=== PATIENT | male | born 1945 | race Caucasian/White ===

== ENCOUNTER → 2019-06-11 09:54 | Outpatient (CLI) | payer OTHER, SELFPAY ==
--- NOTE | ~2019-06-11 | XR_ITS ---
EXAMINATION: XR thoracic spine 3V DATE: 06/11/2019 10:32 INDICATION: Mid to lower back pain TECHNIQUE: AP, lateral and lateral swimmer's views of the thoracic spine were obtained. COMPARISON: None. FINDINGS: There are bridging osteophytes at multiple levels in the spine, consistent with diffuse idi opathic skeletal hyperostosis (DISH). There is no fracture. Bone alignment is normal. Mild loss of in tervertebral disc space height is seen in the midthoracic spine. IMPRESSION: 1. Diffuse idiopathic skeletal hyperostosis without acute findings. Reviewed, dictated and finalized at location A. [employer]
--- NOTE | ~2019-06-11 | XR_ITS ---
EXAMINATION: XR lumbar spine 2-3V DATE: 06/11/2019 10:32 INDICATION: Low back pain TECHNIQUE: Anteroposterior and lateral views of the lumbar spine, and cone-down lateral view of the l umbosacral junction were obtained. COMPARISON: None. FINDINGS: There are 2 mm of retrolisthesis of L2 on L3 and L3 on L4. The vertebral body heights are n ormal. There is severe loss of intervertebral disc space height at L2-3, moderate loss of disc space height at L5-S1, and mild loss of disc space height at L1-2 and L3-4. Small degenerative osteophytes project from the anterior endplates of multiple vertebral bodies. There is moderate lower lumbar face t osteoarthritis. Calcified atherosclerosis is noted. The bowel gas pattern is normal. Cholecystectom y clips are noted. IMPRESSION: 1. Moderate to severe lumbar spondylosis without acute findings. Reviewed, dictated and finalized at location A. [employer]
== END ==
PROVIDERS: PCP Physician Assistant; Visit Provider Physician Assistant
DX: M47.896 Other spondylosis, lumbar region (principal)
CPT/HCPCS: 72072; 72100

== ENCOUNTER 2019-08-24 10:32 | Emergency (ER) | payer OTHER, SELFPAY ==
[2019-08-24] VITALS (11 sets, daily range): BP systolic 147–183; BP diastolic 96–125; PULSE 82–108; RESP 9–20; TEMP 36.4; O2SAT 95–100
--- NOTE | ~2019-08-24 | CT_ITS ---
EXAMINATION: CT lumbar spine wo con DATE: 08/24/2019 11:22 INDICATION: Peripheral neuropathy. Urinary retention. Fall. TECHNIQUE: Computed tomography (CT) of the lumbar spine was performed without intravenous contrast. A utomated exposure control and iterative reconstruction technique were employed. The dose-length produ ct was 1391.92 mGy-cm. COMPARISON: Lumbar spine radiographs 06/11/2019, chest CT 12/31/2018 FINDINGS: There are small pleural effusions, left worse than right. There is 10 degrees dextroscolios is of lumbar spine. There are bridging endplate osteophytes from the thoracic spine to L1, consistent with diffuse idiopathic skeletal hyperostosis (DISH). There is a burst fracture of inferior endplate of T10 with 1/5 loss of height. There is a compression fracture of superior endplate of T11 with les s than 1/5 loss of height. There is 3 mm retrolisthesis of T10 on T11 with mild central canal stenosi s. There is severely decreased disc height at L2-L3 and L5-S1 and mildly decreased disc height at L3- L4. There are acute fractures of left 11th and 12th ribs. The following disc levels are specifically discussed: L1-L2: The disc is bulging. There is mild bilateral facet joint osteoarthritis. There is mild bilater al neural foraminal stenosis. There is mild central canal stenosis. L2-L3: The disc is bulging. There is severe right and moderate left facet joint osteoarthritis. There is moderate bilateral neural foraminal stenosis. There is moderate central canal stenosis. L3-L4: The disc is bulging. There is severe bilateral facet joint osteoarthritis. There is moderate r ight and mild left neural foraminal stenosis. There is mild central canal stenosis. L4-L5: The disc is bulging. There is severe bilateral facet joint osteoarthritis. There is mild bilat eral neural foraminal stenosis. There is mild central canal stenosis. L5-S1: The disc is bulging. There is severe bilateral facet joint osteoarthritis. There is moderate b ilateral neural foraminal stenosis. There is mild central canal stenosis. IMPRESSION: 1. Acute fractures of T10 and T11 vertebral bodies and left 11th and 12th ribs. 2. DISH. 3. Severe lumbar spondylosis. 4. Small pleural effusions. Reviewed, dictated and finalized at location A.
--- NOTE | ~2019-08-24 | XR_ITS ---
EXAMINATION: XR lumbar spine 2-3V DATE: 08/24/2019 11:32 INDICATION: Low back pain. Fall. TECHNIQUE: 2 views of lumbar spine were obtained. COMPARISON: Lumbar spine radiographs 06/11/2019 FINDINGS: There is 3 mm retrolisthesis of T10 on T11 and L2 on L3. There is a fracture of inferior en dplate of T10. There is a fracture of superior endplate of T11 with less than 1/5 loss of height. The re is severely decreased disc height at L2-L3 and L5-S1 and mildly decreased disc height at L3-L4. Th ere are endplate osteophytes at all levels. Surgical clips in the right upper quadrant are likely fro m cholecystectomy. IMPRESSION: 1. Fractures of the T10 and T11 vertebral bodies. 2. Severe lumbar spondylosis. Reviewed, dictated and finalized at location A.
--- NOTE | 2019-08-24 11:04 | ED.MALEGU ---
HPI - Male Genitourinary General Chief complaint: Urogenital-Male Stated complaint: Urinary Retention Time Seen by Provider: 08/24/19 10:42 History of Present Illness HPI Narrative: Patient presents via EMS from home for inability to urinate. He had a fall 2 weeks ago, and has had low back pain and has been unable to get out of his recliner for a week. He had a little bit of urine output yesterday. He has not had urinary retention before. He has significant pelvic pain from the retained urine. He said the fall was when he was leaning against a door which then open and he fell straight back on his back. The pain is at his waistline, and if he tries to stand his legs give out under him. He has sores on his sacrum and his buttocks from sitting so long. He has not been sick, and has no confusion. He has significant amount of pain with either turning, trying to sit up, or any motion of the low back. He lives with his and adult son. He is retired. Complaint: other (Unable to urinate) Onset (ago): day(s) Duration: constant Severity: moderate Quality: aching Relieving factors: none Exacerbating factors: palpation Related Data Home Medications Medication Instructions Recorded Confirmed Ranitidine 300 mg PO DAILY 08/24/19 citalopram 20 mg PO DAILY 08/24/19 furosemide 40 mg PO DAILY 08/24/19 glipizide 5 mg PO DAILY 08/24/19 hydrochlorothiazide 12.5 mg PO DAILY 08/24/19 losartan 100 mg PO DAILY 08/24/19 losartan-hydrochlorothiazide 1 tablet PO DAILY 08/24/19 meloxicam 15 mg PO DAILY 08/24/19 oxybutynin chloride 15 mg PO DAILY 08/24/19 pantoprazole 40 mg PO QAM 08/24/19 primidone 250 mg PO DAILY 08/24/19 rivaroxaban [Xarelto] 20 mg PO DAILY 08/24/19 ropinirole 1 mg PO DAILY 08/24/19 simvastatin 40 mg PO DAILY 08/24/19 sucralfate g 08/24/19 tamsulosin 0.4 mg PO DAILY 08/24/19 Allergies Allergy/AdvReac Type Severity Reaction Status Date / Time No Known Allergies Allergy Verified 04/14/18 10:50 Review of Systems Review of Systems: Narrative: CONSTITUTIONAL: Denies fever, chills, or sweats. EYES: Denies visual changes, redness, or discharge. ENT: Denies rhinorrhea, congestion, sore throat, or otalgia. CARDIOVASCULAR: Denies chest pain, palpitations, or edema. RESPIRATORY: Denies cough or dyspnea. GASTROINTESTINAL: Denies abdominal pain, nausea, vomiting, or diarrhea. GENITOURINARY: Denies dysuria or hematuria. SKIN: Denies rash or itching. MUSCULOSKELETAL: He has back pain, joint pain, and peripheral neuropathy. NEUROLOGIC: Denies headache, numbness, or weakness. PSYCHIATRIC: Denies anxiety or depression. [facility] Social History Social History (Updated 08/24/19 @ 11:15 by Elsie Conner MD) Smoking status: Never smoker Alcohol intake: never Substance use: never Exam Narrative: Exam Narrative: GENERAL: Well-appearing, well-nourished, and in no acute distress. Unkempt hair HEAD: Normocephalic, atraumatic. EYES: PERRLA and EOMI. ENT: Nares clear, no rhinorrhea or epistaxis. Mucous membranes moist. NECK: Supple. CHEST: Clear to auscultation. No respiratory distress. HEART: Regular rate and rhythm. No murmur heard. Normal peripheral pulses. ABDOMEN: Soft, nontender, nondistended, normal active bowel sounds. EXTREMITIES: Normal range of motion. No edema. SKIN: Shallow decubiti in the sacral area with skin breakdown in the buttock. NEURO: No focal deficits. Alert and oriented x3. PSYCH: Normal mood and affect. Const: General: no acute distress and alert Course Reevaluation(s) Reevaluation #1: Went in to tell the patient about his 2 thoracic vertebral fractures and his 2 rib fractures. His first choice would be to stay here and his second choice to be transferred to [place]. Date: 08/24/19 Time: 13:18 Consultations Consultation #1: Call [facility] access line to transfer the patient for his thoracic compression fractures. She will call the trauma surgeon and call us right back for either direct
[2019-08-24 11:17] LABS: Basophils Absolute Auto 0.1 K/mm3 (0.0-0.1); Basophils Percent Auto 0.6 % (0.2-1.2); Eosinophils Absolute Auto 0.1 K/mm3 (0-0.3); Eosinophils Percent Auto 1.4 % (0-4.4); Hemoglobin 17.2 g/dL (14.0-18.0); Immature Granulocyte Absolute 0.11 K/mm3 (0.00-0.031); Immature Granulocyte Percent A 1.4 % (0-0.5); Lymphocytes Absolute Auto 0.69 K/mm3 (0.9-3.2); Lymphocytes Percent Auto 8.6 % (18.3-44.2); Mean Corpuscular HGB Conc 35.1 g/dl (32-36); Mean Corpuscular Hemoglobin 35.8 pg (26-34); Mean Corpuscular Volume 101.9 fl (80-100); Mean Platelet Volume 9.4 fl (7.4-10.4); Monocytes Absolute Auto 0.5 K/mm3 (0.1-0.6); Monocytes Percent Auto 6.1 % (2.6-8.5); Neutrophils Absolute Auto 6.6 K/mm3 (1.3-6.7); Neutrophils Percent Auto 81.9 % (45.5-73.1); Platelet Count Result 332 k/mm3 (150-375); Red Blood Count 4.81 M/mm3 (4.6-6.20); Red Cell Distribution Width 12.5 % (11.5-14.5); White Blood Count 8.1 K/mm3 (4.5-10.0)
[2019-08-24 11:20] LABS: Add Urine Microscopic? YES; Appearance Urine Clear (Clear); Bilirubin Urine Negative (Negative); Blood Urine Negative (Negative); Color Urine Yellow (Yellow); Glucose Urine UA 3+ mg/dL (Negative); Ketones Urine Trace mg/dL (Negative); Leukocyte Esterase Ur Negative LEU/UL (Negative); Mucus Urine Few /lpf; Nitrate Urine Negative (Negative); Protein Urine 3+ mg/dL (Negative); RBC Urine 0-2 /hpf (0-2); Specific Grav Ur 1.014 (1.001-1.035)
[2019-08-24 11:33] LABS: Alanine Aminotransferase 25 U/L (4-50); Albumin Level 4.3 g/dL (3.5-5.1); Alkaline Phosphatase 177 U/L (38-126); Aspartate Amino Transferase 48 U/L (17-59); Bilirubin,Total 1.7 mg/dL (0.2-1.3); Blood Urea Nitrogen 12 mg/dL (9-20); Calcium 9.8 mg/dL (8.4-10.2); Carbon Dioxide 28 mmol/L (22-30); Chloride 94 mmol/L (98-107); Estimated CRCL calculation 138 ml/min; Estimated Glomerular Filt Rate > 60; Glucose 337 mg/dL (75-110); Potassium 3.8 mmol/L (3.4-5.0); Sodium 132 mmol/L (137-145)
[2019-08-24] MEDS: MORPHINE SULFATE 4 MG/ML INJ IV PUSH ×2 (13:20→13:58)
[2019-08-24] MEDS: SODIUM CHLORIDE 0.9% IV 1,000 ML 150 ML IV CONT (13:59)
--- NOTE | 2019-08-24 13:59 | PC.NURSE ---
[facility] declined transfer [facility] accepted ETA 1430 TRIP # [id number]
--- NOTE | 2019-08-24 15:15 | PC.NURSE ---
Pt. O2 saturation dropped into the mid 80s with increased lethargy and snoring respirations after last administration of morphine. Pt. easily arousable. Pt. was placed on 2L nasal cannula. Saturations up to the high 90s now. EDP notified and wants continuation of O2 and close monitoring of O2 saturations.
--- NOTE | 2019-08-24 15:30 | PC.NURSE ---
took Pt. belongings with her when she left. Pt. has some jewelry on that he requested to keep. Pt. has one left earring, two rings ( one on each hand) and three bracelets on their right wrist. Pt. also has two chains around their neck.
--- NOTE | 2019-08-24 16:09 | PC.NURSE ---
[facility] intial ETA 1430, called back stated 1500, called later [facility] stated 1600. Pt. resting comfortably.
--- NOTE | 2019-08-24 16:10 | PC.NURSE ---
Home phone for Pt. Nancy [phone]
== END 2019-08-24 16:40 | disposition short-term general hospital (02) ==
PROVIDERS: Emergency Provider Emergency Medicine; PCP Family Medicine Adolescent Medicine
DX: R33.9 Retention of urine, unspecified (principal); R53.1 Weakness; L89.159 Pressure ulcer of sacral region, unspecified stage; M48.05 Spinal stenosis, thoracolumbar region
CPT/HCPCS: 36415; 72100; 72131; 80053; 81001; 85025; 96361; 96365; 96375; 96376; 99285; J0696; J2270; J7030